=== PATIENT | male | born 1960 | race African-American/Black ===

== ENCOUNTER 2018-12-18 05:27 | Emergency (ER) | payer OTHER ==
[~2018-12-18] VITALS: Ht 175.3 cm; Wt 97.5 kg
[2018-12-18 05:35] VITALS: BP 136/98
[2018-12-18] MEDS ORDERED: GERITOL COMPLE1 EAC2 PO (05:42)
[2018-12-18] MEDS ORDERED: PREDNISONE 20 M20 M1 PO (05:49)
== END 2018-12-18 06:18 | disposition home or self-care (01) ==
LOC: ER 05:27
DX: L50.9 Urticaria, unspecified (principal); F17.210 Nicotine dependence, cigarettes, uncomplicated; Z91.048 Other nonmedicinal substance allergy status

== ENCOUNTER 2019-07-09 11:44 | Emergency (ER) | payer OTHER ==
[~2019-07-09] VITALS: Ht 177.8 cm; Wt 93.0 kg
[~2019-07-09 11:44] MED LIST: GERITOL COMPLE1 EAC2 PO; PREDNISONE 20 M20 M1 PO
[2019-07-09] MEDS ORDERED: NORFLEX100 MG PO (13:23)
[2019-07-09] MEDS ORDERED: NAPROSYN500 MG PO (13:23)
[2019-07-09 13:43] VITALS: BP 129/81
== END 2019-07-09 13:43 | disposition home or self-care (01) ==
LOC: ER 11:44
DX: S39.012A Strain of muscle, fascia and tendon of lower back, initial encounter (principal); S29.012A Strain of muscle and tendon of back wall of thorax, initial encounter; F17.210 Nicotine dependence, cigarettes, uncomplicated; Z88.8 Allergy status to other drugs, medicaments and biological substances; V89.2XXA Person injured in unspecified motor-vehicle accident, traffic, initial encounter; Y92.89 Other specified places as the place of occurrence of the external cause; Y93.89 Activity, other specified; Y99.8 Other external cause status